=== PATIENT | male | born 1950 | race Caucasian/White ===

== ENCOUNTER 2020-09-06 08:00 | Outpatient (CLI) | payer MEDICARE ==
--- NOTE | 2020-09-06 18:39 | XRAY Report ---
PROCEDURE: Ankle 3 View RT INDICATIONS: CONTUSION OF RIGHT ANKLE TECHNIQUE: 3 views of the ankle were acquired. COMPARISON: None FINDINGS: Bones: No fractures or dislocations. Ankle mortise is normally aligned. No suspicious bony lesions . Well-defined plantar calcaneal enthesophyte is seen. Soft tissues: No tibiotalar joint effusion. Mild lateral soft tissue swelling is seen. Achilles ten don appears normal. IMPRESSION: No ankle fracture or dislocation. Intact ankle mortise. Reviewed by: Mitesh Turner MD on 09/06/2020 5:38 PM AKDT Approved by: Mitesh Turner MD on 09/06/2020 5:38 PM AKDT Station ID: [id number]
--- NOTE | 2020-09-06 18:39 | XRAY Report ---
PROCEDURE: Foot 3 View RT INDICATIONS: UNSPECIFIED FRACTURE OF RIGHT TOE TECHNIQUE: 3 views of the foot were acquired. COMPARISON: None FINDINGS: Bones: Nondisplaced intra-articular fracture involving medial portion of first proximal phalangeal ba se is seen. No other fracture or dislocation. Well-defined plantar calcaneal enthesophyte is seen.. No suspicious bony lesions. Soft tissues: No tibiotalar joint effusion. Achilles tendon appears normal. IMPRESSION: Acute nondisplaced intra-articular fracture of first proximal phalangeal base medial aspect. Reviewed by: Mitesh Turner MD on 09/06/2020 5:37 PM [email or web address] Approved by: Mitesh Turner MD on 09/06/2020 5:37 PM AKDT Station ID: [id number]
== END 2020-09-06 23:59 | disposition home or self-care (01) ==
LOC: DI.S 08:00
PROVIDERS: ATTEND Physician Assistant Medical
DX: S92.414A Nondisplaced fracture of proximal phalanx of right great toe, initial encounter for closed fracture (principal); S90.01XA Contusion of right ankle, initial encounter